=== PATIENT | male | born 1940 | race Caucasian/White ===

== ENCOUNTER 2016-12-27 19:05 | Emergency (ER) | payer MEDICARE ==
[~2016-12-27] VITALS: Ht 177.8 cm; Wt 101.0 kg
[2016-12-27] MEDS ORDERED: RANITIDINE150 M1 PO (19:21)
[2016-12-27] MEDS ORDERED: FINASTERIDE5 MG PO (19:21)
[2016-12-27] MEDS ORDERED: LOSARTAN POTASS50 MG PO (19:21)
[2016-12-27] MEDS ORDERED: CHLORTHALIDONE25 MG PO (19:22)
[2016-12-27] MEDS ORDERED: PRAVASTATIN20 MG PO (19:22)
[2016-12-27] MEDS ORDERED: ASPIRIN81 MG PO (19:22)
[2016-12-27] MEDS ORDERED: LEVOTHYROXIN50 MCG PO (19:22)
[2016-12-27] MEDS ORDERED: MULTI VIT PO (19:22)
[2016-12-27] MEDS ORDERED: AMLODIPINE5 MG PO (19:23)
[2016-12-27] MEDS ORDERED: C 250 PO (19:23)
[2016-12-27 19:55] VITALS: BP 129/74
== END 2016-12-27 19:55 | disposition home or self-care (01) ==
LOC: ED 19:05
PROC: 0HQDXZZ Repair Right Lower Arm Skin, External Approach (ICD-10-PCS; principal; 2016-12-27)
DX: S51.011A Laceration without foreign body of right elbow, initial encounter (principal); W18.30XA Fall on same level, unspecified, initial encounter; W22.09XA Striking against other stationary object, initial encounter; Y93.89 Activity, other specified; Y92.009 Unspecified place in unspecified non-institutional (private) residence as the place of occurrence of the external cause

== ENCOUNTER 2017-01-03 14:34 | Emergency (ER) | payer MEDICARE ==
[~2017-01-03] VITALS: Ht 177.8 cm; Wt 100.0 kg
[~2017-01-03 14:34] MED LIST: AMLODIPINE5 MG PO; ASPIRIN81 MG PO; C 250 PO; CHLORTHALIDONE25 MG PO; FINASTERIDE5 MG PO; LEVOTHYROXIN50 MCG PO; LOSARTAN POTASS50 MG PO; MULTI VIT PO; PRAVASTATIN20 MG PO; RANITIDINE150 M1 PO
[2017-01-03 15:10] VITALS: BP 129/74
== END 2017-01-03 15:10 | disposition home or self-care (01) ==
LOC: ED 14:34
DX: S41.101D Unspecified open wound of right upper arm, subsequent encounter (principal); I10 Essential (primary) hypertension; K21.9 Gastro-esophageal reflux disease without esophagitis; X58.XXXD Exposure to other specified factors, subsequent encounter